=== PATIENT | male | born 1965 | race Caucasian/White ===

== ENCOUNTER 2017-03-06 12:40 | Emergency (ER) | payer MEDICARE, OTHER ==
[~2017-03-06] VITALS: Ht 190.5 cm; Wt 84.4 kg
[2017-03-06 12:40] VITALS: BP 142/77
--- NOTE | 2017-03-06 12:52 | PHYS DOC ---
Adult General Chief Complaint Chief Complaint: LACERATION/AVULSION HPI HPI Patient is a 51 year old male presents to the ED complaining of finger laceration 2 hours. Patient states that his ring on his finger got caught while he was helping a friend move stuff and it cut his finger. Tetanus up-to- date. Full range of motion. Denies fever, abdominal pain, chest pain, shortness of breath or weakness. Review of Systems Review of Systems Constitutional: Denies fever or chills [] Eyes: Denies change in visual acuity, redness, or eye pain [] HENT: Denies nasal congestion or sore throat [] Respiratory: Denies cough or shortness of breath [] Cardiovascular: No additional information not addressed in HPI [] GI: Denies abdominal pain, nausea, vomiting, bloody stools or diarrhea [] : Denies dysuria or hematuria [] Musculoskeletal: Denies back pain. Complains of finger pain. [] Integument: Denies rash or skin lesions [] Neurologic: Denies headache, focal weakness or sensory changes [] Endocrine: Denies polyuria or polydipsia [] Current Medications Current Medications Current Medications Medications (Trade) Dose Ordered Sig/Nanda Start Time Stop Time Status Last Admin Dose Admin Lidocaine/Sodium Bicarbonate (Buffered Lidocaine 1%) 20 ml 1X ONCE 03/06/17 13:00 03/06/17 13:01 DC 03/06/17 13:00 20 ML Allergies Allergies Allergies Coded Allergies Type Severity Reaction Last Updated Verified Penicillins Allergy Intermediate hives 03/06/17 Yes Physical Exam Physical Exam Constitutional: Well developed, well nourished, no acute distress, non-toxic appearance. [] HENT: Normocephalic, atraumatic, bilateral external ears normal, oropharynx moist, no oral exudates, nose normal. [] Eyes: PERRLA, EOMI, conjunctiva normal, no discharge. [] Neck: Normal range of motion, no tenderness, supple, no stridor. [] Cardiovascular:Heart rate regular rhythm, no murmur [] Lungs & Thorax: Bilateral breath sounds clear to auscultation [] Abdomen: Bowel sounds normal, soft, no tenderness, no masses, no pulsatile masses. [] Skin: Warm, dry, no erythema, no rash. [] Back: No tenderness, no CVA tenderness. [] Extremities: MILD LEFT 4TH FINGER 2 CM MACERATED LACERATION, 3 CM LACERATION TO LEFT PALM. NORMAL, NO TENDON INJURY, no cyanosis, no clubbing, ROM intact, no edema. [] Neurologic: Alert and oriented X 3, normal motor function, normal sensory function, no focal deficits noted. [] Psychologic: Affect normal, judgement normal, mood normal. [] Current Patient Data Vital Signs Vital Signs Date Time Temp Pulse Resp B/P (MAP) Pulse Ox O2 Delivery O2 Flow Rate FiO2 03/06/17 12:40 98.1 70 20 96 Room Air 98.1 EKG EKG [] Radiology/Procedures Radiology/Procedures [] Course & Med Decision Making Course & Med Decision Making Pertinent Labs and Imaging studies reviewed. (See chart for details) []Wedding ring removed. No complications. X-ray negative for acute injury. Tetanus up-to-date. Laceration repaired. No complications. Will discharge with Bactrim and analgesics. Discussed follow-up for wound reevaluation in 3 days. Provided contact information/education. Discussed reasons to return to the ED. Patient understands and agrees with plan. Dragon Disclaimer Dragon Disclaimer This electronic medical record was generated, in whole or in part, using a voice recognition dictation system. Departure Departure Impression: Primary Impression: Finger laceration Disposition: 01 HOME, SELF-CARE Condition: STABLE Patient Instructions: Laceration Care, Adult Scripts Hydrocodone/Apap 5-325 (NORCO 5-325 TABLET) 1 Each Tablet 1 TAB PO BID, #6 TAB Prov: VAMSHI FUENTES 03/06/17 Sulfamethoxazole/Trimethoprim (BACTRIM DS TABLET) 1 Each Tablet 1 TAB PO BID, #20 TAB Prov: VAMSHI FUENTES 03/06/17 Laceration/Wound Repair Laceration/Wound Repair : Wound Location: upper extremity Wound's Depth, Shape: superficial Wound Explored: clean Irrigated w/ Saline (ccs): 250 Betadine Prep?: Yes Anesthesia: 1% Lidocaine Wound Repaired With: sutures Suture Size/Type: 4:0 Number of Sutures: 7 Sterile Dressing Applied?: Yes Progress No complications. Patient tolerated well. Laceration/Wound Repair Laceration/Wound Repair : Wound Location: upper extremity (left 4th finger) Wound's Depth, Shape: superficial Wound Length (cm): 2 Wound Explored: clean Irrigated w/ Saline (ccs): 250 Betadine Prep?: Yes Anesthesia: 1% Lidocaine Wound Debrided: minimal Wound Repaired With: sutures Suture Size/Type: 3:0 Number of Sutures: 8 Sterile Dressing Applied?: Yes Progress No complications. Patient tolerated well. VAMSHI FUENTES Mar 06, 2017 12:52
[2017-03-06] MEDS ORDERED: LIDOCAINE 1% / SOD BICARB 8.4% 20 ML VIAL. IJ ONE (13:00)
--- NOTE | 2017-03-06 14:05 | RAD ---
EXAM: Left fourth finger, 3 views. HISTORY: Trauma. COMPARISON: None. FINDINGS: Frontal, lateral and oblique views of the left fourth finger are obtained. There is no fracture, dislocation or subluxation. There is a soft tissue laceration involving the fourth finger near the proximal interphalangeal joint. There is overlying bandage material. There are tiny punctate foreign bodies along the skin surface. There is soft tissue swelling. IMPRESSION: Laceration with soft tissue swelling involving the fourth finger. No fracture is seen.
[2017-03-06] MEDS ORDERED: HYDR-971 PO (15:06)
[2017-03-06] MEDS ORDERED: SULF1TAB24 PO (15:06)
== END 2017-03-06 15:20 | disposition home or self-care (01) ==
LOC: ER 12:40
DX: S61.215A Laceration without foreign body of left ring finger without damage to nail, initial encounter (principal); S61.412A Laceration without foreign body of left hand, initial encounter; Z88.0 Allergy status to penicillin; W23.0XXA Caught, crushed, jammed, or pinched between moving objects, initial encounter; Y93.89 Activity, other specified; Y99.8 Other external cause status; Y92.89 Other specified places as the place of occurrence of the external cause
CPT/HCPCS: 12002; 73140; 99284-25